=== PATIENT | male | born 1950 | race American Indian/Alaskan Native ===

== ENCOUNTER 2016-10-15 17:33 | Emergency (ER) | payer MEDICARE ==
[2016-10-15 17:45] VITALS: BP 111/73
[2016-10-15 18:11] LABS: Basophils % (Auto) 0.2 % (0.0-1.8); Hemoglobin 13.9 gm/dl (11.8-15.2); Mean Corpuscular HGB Conc 33 % (32-34); Mean Corpuscular Hemoglobin 30 pg (28-32); Mean Corpuscular Volume 90 fl (84-94); Platelet Count 138 K/mm3 (140-440); Red Blood Count 4.68 M/mm3 (3.65-5.03); Red Cell Distribution Width 15.5 % (13.2-15.2); White Blood Count 10.2 K/mm3 (4.5-11.0)
[2016-10-15 18:24] LABS: Anion Gap 18 mmol/L; Blood Urea Nitrogen 11 mg/dL (9-20); Calcium 9.4 mg/dL (8.4-10.2); Carbon Dioxide 24 mmol/L (22-30); Chloride 97.3 mmol/L (98-107); Glucose 93 mg/dL (75-100); Potassium 3.8 mmol/L (3.6-5.0); Sodium 135 mmol/L (137-145)
[2016-10-15 18:40] LABS: Bilirubin,Urine NEG (Negative); Blood,Urine LG (Negative); Ketones,Urine NEG (Negative); Leukocyte Esterase,Urine LG (Negative); Mucus,Urine FEW /HPF; Nitrite,Urine NEG (Negative); Urobilinogen,Urine < 2.0 mg/dL (<2.0)
[2016-10-15 18:43] LABS: WBC,Urine > 182.0 /HPF (0.0-6.0)
== END 2016-10-15 18:10 | disposition left against medical advice (07) ==
LOC: ED 17:33
DX: Z53.21 Procedure and treatment not carried out due to patient leaving prior to being seen by health care provider (principal)
CPT/HCPCS: 36415; 80048; 81001; 85025